=== PATIENT | female | born 1950 ===

== ENCOUNTER 2020-06-26 07:24 | Outpatient (CLI) | payer BC, OTHER ==
[2020-06-27 14:10] LABS: SARS-CoV-2 MS2 Positive; SARS-CoV-2 N Gene Negative; SARS-CoV-2 S Gene Negative; SARS-CoV-2 by NAA Not Detected (NotDetected); SARS-CoV-2 orf1ab Negative
== END 2020-06-26 07:25 | disposition home or self-care (01) ==
LOC: LABBT 07:24
PROVIDERS: ATTEND Family Medicine
DX: H43.821 Vitreomacular adhesion, right eye (principal); H43.311 Vitreous membranes and strands, right eye; Z20.828 Contact with and (suspected) exposure to other viral communicable diseases
CPT/HCPCS: 87635; U0003